=== PATIENT | male | born 1990 | race African-American/Black ===

== ENCOUNTER 2017-03-01 14:12 | Inpatient (IN) | payer MEDICAID ==
[~2017-03-01] VITALS: Ht 177.8 cm; Wt 54.2 kg
[2017-03-01 15:10] LABS: BASOPHILS # (AUTO) 0.01 K/uL (0.00-0.20); BASOPHILS % (AUTO) 0.3 % (0.0-2.0); EOSINOPHILS % (AUTO) 0.03 % (1.0-6.0); HEMATOCRIT 45.3 % (41-53); HEMOGLOBIN 15.2 g/dL (13.5-17.5); LYMPHOCYTES # (AUTO) 0.7 K/uL (1.0-4.8); LYMPHOCYTES % (AUTO) 12.1 % (22.0-44.0); MEAN CORPUSCULAR HEMOGLOBIN 30.5 pg (26.0-34.0); MEAN CORPUSCULAR HGB CONC 33.6 G/dL (31.0-37.0); MEAN CORPUSCULAR VOLUME 91 fL (80-100); MONOCYTES # (AUTO) 0.3 K/uL (0.1-1.0); MONOCYTES % (AUTO) 5.7 % (2.0-9.0); NEUTROPHILS # (AUTO) 4.4 K/uL (1.8-7.7); NEUTROPHILS % (AUTO) 81.9 % (40.0-70.0); PLATELET COUNT (AUTO) 435 K/uL (150-450); RED BLOOD CELL COUNT(AUTO) 4.98 MIL/uL (4.50-5.90); RED CELL DISTRIBUTION WIDTH 13.1 % (11.5-14.5); WHITE BLOOD COUNT (AUTO) 5.4 K/uL (4.5-11.0)
[2017-03-01 15:32] LABS: ANION GAP 13 mmol/L (8-16); CALCIUM, TOTAL 9.5 mg/dL (8.8-10.5); CARBON DIOXIDE 24 mmol/L (22-29); CHLORIDE 104 mmol/L (98-107); CREATININE 1.34 mg/dL (0.60-1.30); GLOMERULAR FILTR. RATE CALC > 60 mL/min (>60); POTASSIUM 4.1 mmol/L (3.5-5.1); SODIUM SERUM 141 mmol/L (136-145); UREA NITROGEN, BLOOD 23 mg/dL (7-18)
[2017-03-01 15:40] LABS: ALANINE AMINOTRANSFERASE 36 U/L (12-78); ALBUMIN 4.7 g/dL (3.4-5.0); ASPARTATE AMINOTRANSFERASE 43 U/L (15-37); BILIRUBIN,TOTAL 1.7 mg/dL (0.1-1.0); TOTAL PROTEIN, SERUM 8.6 g/dL (6.4-8.2)
[2017-03-01] MEDS ORDERED: LORazepam 2 MG/ML VIAL IM ONE (19:30)
[2017-03-01] MEDS ORDERED: HALOPERIDOL LACTATE 5 MG/ML VIAL IM ONE (19:30)
[2017-03-01] MEDS ORDERED: ZOLPIDEM TARTRATE 10 MG TABLET PO PRN (20:00)
[2017-03-02 00:01] VITALS: BP 113/62
[2017-03-02 08:25] VITALS: BP 110/63
[2017-03-02] MEDS: HALOPERIDOL 5 MG TABLET PO PRN (13:34)
[2017-03-02] MEDS: LORazepam 2 MG TABLET PO PRN (13:34)
[2017-03-02 16:00] VITALS: BP 112/67
[2017-03-02] MEDS: RisperiDONE 1 MG TABLET PO SCH (20:42)
[2017-03-03 05:52] VITALS: BP 117/71
[2017-03-03] MEDS: HALOPERIDOL 5 MG TABLET PO PRN (09:58)
[2017-03-03] MEDS: LORazepam 2 MG TABLET PO PRN ×2 (09:58→17:31)
[2017-03-03 16:00] VITALS: BP 135/82
[2017-03-03] MEDS: RisperiDONE 1 MG TABLET PO SCH (20:10)
[2017-03-04 06:45] VITALS: BP 127/76
[2017-03-04 08:25] VITALS: BP 124/70
[2017-03-04] MEDS ORDERED: RISP1 PO (12:03)
== END 2017-03-04 13:25 | disposition home or self-care (01) | DRG 885 ==
LOC: EMS 14:15 → B3A 20:24
DX: F29 Unspecified psychosis not due to a substance or known physiological condition (principal); F12.10 Cannabis abuse, uncomplicated; Z59.0 Homelessness; Z79.899 Other long term (current) drug therapy
CPT/HCPCS: 96372; 99285; G0480; J1630; J2060

== ENCOUNTER 2017-03-09 14:55 | Inpatient (IN) | payer MEDICAID ==
[~2017-03-09] VITALS: Ht 177.8 cm; Wt 58.2 kg
[~2017-03-09 14:55] MED LIST: RISP1 PO
[2017-03-09 16:28] LABS: BASOPHILS % (AUTO) 0.9 % (0.0-2.0); EOSINOPHILS % (AUTO) 0.7 % (1.0-6.0); HEMATOCRIT 43.5 % (41-53); HEMOGLOBIN 14.2 g/dL (13.5-17.5); LYMPHOCYTES # (AUTO) 1.2 K/uL (1.0-4.8); LYMPHOCYTES % (AUTO) 28.7 % (22.0-44.0); MEAN CORPUSCULAR HEMOGLOBIN 30.3 pg (26.0-34.0); MEAN CORPUSCULAR HGB CONC 32.7 G/dL (31.0-37.0); MEAN CORPUSCULAR VOLUME 93 fL (80-100); MONOCYTES # (AUTO) 0.3 K/uL (0.1-1.0); MONOCYTES % (AUTO) 7.6 % (2.0-9.0); NEUTROPHILS # (AUTO) 2.7 K/uL (1.8-7.7); NEUTROPHILS % (AUTO) 62.1 % (40.0-70.0); PLATELET COUNT (AUTO) 436 K/uL (150-450); RED BLOOD CELL COUNT(AUTO) 4.69 MIL/uL (4.50-5.90); RED CELL DISTRIBUTION WIDTH 13.5 % (11.5-14.5); WHITE BLOOD COUNT (AUTO) 4.3 K/uL (4.5-11.0)
[2017-03-09 16:41] LABS: ANION GAP 9 mmol/L (8-16); CALCIUM, TOTAL 9.3 mg/dL (8.8-10.5); CARBON DIOXIDE 29 mmol/L (22-29); CHLORIDE 104 mmol/L (98-107); CREATININE 1.05 mg/dL (0.60-1.30); GLOMERULAR FILTR. RATE CALC > 60 mL/min (>60); POTASSIUM 4.6 mmol/L (3.5-5.1); SODIUM SERUM 142 mmol/L (136-145); UREA NITROGEN, BLOOD 13 mg/dL (7-18)
[2017-03-09 16:46] LABS: ALANINE AMINOTRANSFERASE 41 U/L (12-78); ALBUMIN 4.3 g/dL (3.4-5.0); ASPARTATE AMINOTRANSFERASE 29 U/L (15-37); BILIRUBIN,TOTAL 0.7 mg/dL (0.1-1.0)
[2017-03-09] MEDS ORDERED: HALOPERIDOL 5 MG TABLET PO PRN (18:00)
[2017-03-09] MEDS ORDERED: ZOLPIDEM TARTRATE 10 MG TABLET PO PRN (18:00)
[2017-03-10 01:45] VITALS: BP 117/78
[2017-03-10 06:41] LABS: BASOPHILS % (AUTO) 1.1 % (0.0-2.0); EOSINOPHILS % (AUTO) 1.6 % (1.0-6.0); HEMATOCRIT 42.5 % (41-53); HEMOGLOBIN 13.9 g/dL (13.5-17.5); LYMPHOCYTES # (AUTO) 2.2 K/uL (1.0-4.8); LYMPHOCYTES % (AUTO) 45.5 % (22.0-44.0); MEAN CORPUSCULAR HEMOGLOBIN 30.5 pg (26.0-34.0); MEAN CORPUSCULAR HGB CONC 32.7 G/dL (31.0-37.0); MEAN CORPUSCULAR VOLUME 93 fL (80-100); MONOCYTES # (AUTO) 0.5 K/uL (0.1-1.0); NEUTROPHILS % (AUTO) 41.8 % (40.0-70.0); PLATELET COUNT (AUTO) 403 K/uL (150-450); RED BLOOD CELL COUNT(AUTO) 4.56 MIL/uL (4.50-5.90); RED CELL DISTRIBUTION WIDTH 13.5 % (11.5-14.5); WHITE BLOOD COUNT (AUTO) 4.8 K/uL (4.5-11.0)
[2017-03-10 07:10] LABS: ALANINE AMINOTRANSFERASE 21 U/L (12-78); ALBUMIN 3.8 g/dL (3.4-5.0); ANION GAP 7 mmol/L (8-16); ASPARTATE AMINOTRANSFERASE 25 U/L (15-37); BILIRUBIN,TOTAL 1.1 mg/dL (0.1-1.0); CALCIUM, TOTAL 8.9 mg/dL (8.8-10.5); CARBON DIOXIDE 29 mmol/L (22-29); CHLORIDE 105 mmol/L (98-107); CREATININE 0.93 mg/dL (0.60-1.30); GLOMERULAR FILTR. RATE CALC > 60 mL/min (>60); POTASSIUM 4.7 mmol/L (3.5-5.1); SODIUM SERUM 141 mmol/L (136-145); TOTAL PROTEIN, SERUM 6.9 g/dL (6.4-8.2); UREA NITROGEN, BLOOD 12 mg/dL (7-18)
[2017-03-10 08:54] VITALS: BP 115/67
[2017-03-10 10:26] LABS: GLUCOSE, URINE (UA) NEGATIVE (NEGATIVE); KETONES,URINE NEGATIVE (NEGATIVE); LEUKOCYTE ESTERASE ,URINE SMALL (NEGATIVE); OCCULT BLOOD,URINE NEGATIVE (NEGATIVE); PROTEIN,URINE NEGATIVE (NEGATIVE)
[2017-03-10 10:44] LABS: ADD UA MICROSCOPIC YES; APPEARANCE,URINE HAZY (CLEAR); WBC,URINE None Seen /HPF (0-5)
[2017-03-10 10:45] LABS: SQUAMOUS EPITHELIAL CELL,UR Few /LPF (None Seen)
[2017-03-10] MEDS ORDERED: DiphenhydrAMINE HCL 50 MG/ML VIAL IM ONE (13:00)
[2017-03-10] MEDS ORDERED: HALOPERIDOL 5 MG TABLET PO ONE (13:00)
[2017-03-10] MEDS ORDERED: LORazepam 2 MG/ML VIAL IM ONE (13:00)
[2017-03-10] MEDS ORDERED: HALOPERIDOL LACTATE 5 MG/ML VIAL ONE (13:07)
[2017-03-10] MEDS: RisperiDONE 2 MG TABLET PO SCH (17:00)
[2017-03-11] MEDS: RisperiDONE 2 MG TABLET PO SCH ×3 (09:00→16:29)
[2017-03-11 09:29] VITALS: BP 130/62
[2017-03-11] MEDS: LORazepam 2 MG TABLET PO PRN (18:42)
[2017-03-11 19:24] VITALS: BP 133/69
[2017-03-12 07:46] LABS: CHOL/HDL RATIO 2.5 (4.2-7.3)
[2017-03-12 08:05] VITALS: BP 126/72
[2017-03-12] MEDS: RisperiDONE 2 MG TABLET PO SCH (09:10)
[2017-03-12] MEDS: RisperiDONE 3 MG TABLET PO SCH (17:18)
[2017-03-12 21:53] VITALS: BP 122/75
[2017-03-13 08:30] VITALS: BP 107/62
[2017-03-13] MEDS: RisperiDONE 3 MG TABLET PO SCH ×2 (10:09→17:49)
[2017-03-13] MEDS: LORazepam 2 MG TABLET PO PRN (13:33)
[2017-03-13 16:00] VITALS: BP 115/62
[2017-03-14] MEDS: RisperiDONE 3 MG TABLET PO SCH (08:08)
[2017-03-14 08:35] VITALS: BP 106/66
[2017-03-14] MEDS ORDERED: RISP3 PO (12:30)
== END 2017-03-14 14:40 | disposition home or self-care (01) | DRG 750 ==
LOC: EMS 14:56 → 3EI 22:21 → 3EC 03-10 13:20
PROVIDERS: ADMIT Psychiatry & Neurology Psychiatry; ATTEND Psychiatry & Neurology Psychiatry
DX: F20.0 Paranoid schizophrenia (principal); R45.851 Suicidal ideations; F12.90 Cannabis use, unspecified, uncomplicated; Z79.899 Other long term (current) drug therapy
CPT/HCPCS: 87081; 99285; G0480; J1200; J1630; J2060